=== PATIENT | female | born 1990 | race Two or more races ===

== ENCOUNTER 2018-01-15 07:13 | Inpatient (IN) | payer OTHER ==
[2018-01-15] MEDS ORDERED: LIDOCAINE 0.5% (SDV) 50 ML INJ (07:14)
[2018-01-15] MEDS: OXYTOCIN 10 UNIT INJ IM (07:21)
[2018-01-15] MEDS: LACTATED RINGER'S 1,000 ML IV* (07:22)
[2018-01-15] MEDS ORDERED: METHYLERGONOVINE 0.2 MG INJ IM ×2 (07:30→10:30)
[2018-01-15] MEDS ORDERED: MISOPROSTOL 200 MCG TAB PR ×2 (07:30→10:30)
[2018-01-15] MEDS ORDERED: OXYTOCIN 30 UNITS/LR 500 ML IV ×2 (07:30→10:30)
[2018-01-15] MEDS ORDERED: LIDOCAINE 1% (MPF) 30 ML INJ INJ (07:30)
[2018-01-15] MEDS ORDERED: IBUPROFEN 600 MG TAB PO (07:30)
[2018-01-15] MEDS ORDERED: CARBOPROST 250 MCG INJ IM ×2 (07:30→10:30)
[2018-01-15] MEDS ORDERED: BUTORPHANOL 2 MG INJ (07:33)
[2018-01-15] MEDS: OXYTOCIN 30 UNITS/LR 500 ML IV ×3 (07:41→11:36)
[2018-01-15] MEDS: BUTORPHANOL 2 MG INJ IV (07:43)
[2018-01-15 08:07] LABS: ADD MAN DIFF? NO
[2018-01-15 08:29] LABS: INR 0.85; PARTIAL THROMBOPLASTIN TIME 27.2 Sec (23.0-35.0); PROTIME 11.7 Sec (11.9-14.9); PT RATIO 0.9
[2018-01-15 08:30] LABS: WHITE BLOOD COUNT 7.4 10^3/ul (4.8-10.8)
[2018-01-15 08:30] LABS: BASOPHILS % 0.3 % (0.0-2.0); EOSINOPHILS # 0.1 10^3/ul (0.0-0.5); EOSINOPHILS % 1.6 % (0.0-7.0); HEMATOCRIT 37.4 % (37.0-47.0); HEMOGLOBIN 11.6 g/dl (12.0-16.0); LYMPHOCYTES # 1.3 10^3/ul (0.8-2.9); LYMPHOCYTES % 17.7 % (15.0-51.0); MEAN CORPUSCULAR HEMOGLOBIN 26.4 pg (29.0-33.0); MEAN PLATELET VOLUME 12.8 fl (7.4-10.4); MONOCYTE # 0.6 10^3/ul (0.3-0.9); MONOCYTES % 8.2 % (0.0-11.0); NEUTROPHIL # 5.3 10^3/ul (1.6-7.5); NEUTROPHILS % 71.7 % (39.0-77.0); PLATELET COUNT 193 10^3/UL (140-415); RED CELL DISTRIBUTION WIDTH 16.7 % (11.5-14.5)
[2018-01-15 09:01] LABS: HEPATITIS B SURFACE ANTIGEN NEGATIVE (NEGATIVE)
[2018-01-15 10:13] LABS: HIV 1&2 ANTIBODY NEGATIVE (NEGATIVE)
[2018-01-15] MEDS ORDERED: ZOLPIDEM 5 MG TAB PO (10:30)
[2018-01-15] MEDS ORDERED: BENZOCAINE 20% 56 ML SPRAY TOP (10:30)
[2018-01-15] MEDS ORDERED: OXYCODONE/ASPIRIN (4.88/325) TAB PO ×2 (10:30)
[2018-01-15] MEDS ORDERED: LANOLIN 7 GM TUBE TOP (10:30)
[2018-01-15] MEDS ORDERED: WITCH HAZEL/GLYCERIN PAD PR (10:30)
[2018-01-15] MEDS: IBUPROFEN 600 MG TAB PO ×2 (11:35→18:37)
[2018-01-15 13:19] LABS: ADD UMIC YES; UR ASCORBIC ACID 40 mg/dL (NEGATIVE); UR BACTERIA FEW /HPF (NONE SEEN); UR BILIRUBIN (Dip) NEGATIVE (NEGATIVE); UR BLOOD (Dip) 3+ mg/dL (NEGATIVE); UR CLARITY CLOUDY (CLEAR); UR COLOR AMBER (YELLOW); UR GLUCOSE (Dip) NEGATIVE (NEGATIVE); UR KETONES (Dip) NEGATIVE (NEGATIVE); UR LEUKOCYTE ESTERASE (Dip) TRACE Leu/ul (NEGATIVE); UR MUCUS FEW /HPF (NONE SEEN); UR NITRITE (Dip) NEGATIVE (NEGATIVE); UR RBC > 182 /HPF (0-5); UR SPECIFIC GRAVITY (Dip) 1.025 (1.003-1.030); UR TOTAL PROTEIN (Dip) 2+ mg/dl (NEGATIVE); UR UROBILINOGEN (Dip) 1+ mg/dL (NEGATIVE); UR WBC 85 /HPF (0-5)
[2018-01-15 14:11] LABS: BARBITURATES Negative (NEGATIVE); BENZODIAZEPINES Negative (NEGATIVE); CANNABINOIDS Negative (NEGATIVE); COCAINE Negative (NEGATIVE); OPIATES Negative (NEGATIVE)
[2018-01-15 14:22] LABS: AMPHETAMINE/METHAMPHETAMINE POSITIVE (NEGATIVE)
[2018-01-15 20:17] LABS: RAPID PLASMA REAGIN NONREACTIVE (NR)
[2018-01-15] MEDS: SENNA/DOCUSATE NA (8.6MG/50MG) TAB PO (21:20)
[2018-01-16] MEDS: IBUPROFEN 600 MG TAB PO ×5 (00:34→23:29)
[2018-01-16 09:14] LABS: ADD MAN DIFF? NO
[2018-01-16 09:19] LABS: BASOPHILS % 0.3 % (0.0-2.0); EOSINOPHILS # 0.2 10^3/ul (0.0-0.5); HEMATOCRIT 30.5 % (37.0-47.0); HEMOGLOBIN 9.3 g/dl (12.0-16.0); LYMPHOCYTES # 2.1 10^3/ul (0.8-2.9); LYMPHOCYTES % 27.3 % (15.0-51.0); MEAN CORPUSCULAR HEMOGLOBIN 26.4 pg (29.0-33.0); MEAN CORPUSCULAR HGB CONC 30.5 g/dl (32.0-37.0); MEAN CORPUSCULAR VOLUME 86.6 fl (82.0-101.0); MEAN PLATELET VOLUME 12.9 fl (7.4-10.4); MONOCYTE # 0.8 10^3/ul (0.3-0.9); MONOCYTES % 10.7 % (0.0-11.0); NEUTROPHIL # 4.5 10^3/ul (1.6-7.5); NEUTROPHILS % 58.4 % (39.0-77.0); PLATELET COUNT 170 10^3/UL (140-415); RED BLOOD COUNT 3.52 10^6/ul (4.20-5.40); RED CELL DISTRIBUTION WIDTH 17.1 % (11.5-14.5)
[2018-01-16 09:19] LABS: WHITE BLOOD COUNT 7.7 10^3/ul (4.8-10.8)
[2018-01-16] MEDS: SENNA/DOCUSATE NA (8.6MG/50MG) TAB PO ×2 (10:34→21:00)
[2018-01-16 11:11] LABS: RUBELLA ANTIBODY - IGM <20.00 AU/mL
[2018-01-17] MEDS: IBUPROFEN 600 MG TAB PO ×2 (06:00→11:31)
[2018-01-17] MEDS: SENNA/DOCUSATE NA (8.6MG/50MG) TAB PO (10:20)
[2018-01-17] MEDS: DIPHTH/TET/ACEL PERTUSS (ADULT) 0.5 ML VIAL IM* (10:25)
== END 2018-01-17 15:35 | disposition home or self-care (01) | DRG 776 ==
LOC: OBT 07:13 → L-D 07:13 → OBT 07:14 → L-D 07:14 → PP1 10:25
PROVIDERS: Obstetrics & Gynecology
PROC: 10E0XZZ Delivery of Products of Conception, External Approach (ICD-10-PCS; principal; 2018-01-15)
DX: Z39.0 Encounter for care and examination of mother immediately after delivery (principal); Z23 Encounter for immunization
CPT/HCPCS: 59414; 80307; 81001; 85025; 85610; 85730; 86592; 86703; 86762; 86850; 86900; 86901; 87340; 90715